=== PATIENT | male | born 1955 ===

== ENCOUNTER 2016-06-16 23:53 | Emergency (ER) | payer OTHER ==
[~2016-06-16] VITALS: Ht 180.3 cm; Wt 62.0 kg
[2016-06-16 23:59] VITALS: Ht 180.3 cm; Wt 62.0 kg
--- NOTE | 2016-06-17 00:50 | ERD ---
ER Documentation Chief Complaint Date/Time DATE: 06/17/16 TIME: 00:49 Chief Complaint bib [employer] from retirement for poss. broken injection needle that traveled up arm HPI This is a 60-year-old male brought in by [employer] for retirement for possible broken needle. Denies any other complaints. ROS All systems reviewed and are negative except as per history of present illness. Allergies Allergies: Coded Allergies: No Known Drug Allergies (Verified Allergy, Unknown, 06/17/16) Physical Exam Vitals Vital Signs Date Time Temp Pulse Resp B/P Pulse Ox O2 Delivery O2 Flow Rate FiO2 06/16/16 23:59 98.1 91 20 151/91 97 Physical Exam Const: [] Head: Atraumatic Eyes: Normal Conjunctiva ENT: Normal External Ears, Nose and Mouth. Neck: Full range of motion..~ No meningismus. Resp: Clear to auscultation bilaterally Cardio: Regular rate and rhythm, no murmurs Abd: Soft, non tender, non distended. Normal bowel sounds Skin: No petechiae or rashes Back: No midline or flank tenderness Ext: No cyanosis, or edema Neur: Awake and alert Psych: Normal Mood and Affect Procedures/MDM X-ray Shoulder 3V Interpreted by me: Bones: No fracture Joints: No dislocation Foreign body: None X-ray Forearm 2V Interpreted by me: Bones: [No fracture] Joints: [No dislocation] Foreign body: Metal foreign body in forearm Medical decision-making: This 52 [place] retained foreign body likely needle in his arm. It is a nondangerous place and has no ability to travel. It has been there for 2 weeks. Patient will be discharged in police custody. Departure Diagnosis: Primary Impression: Retained foreign body Condition: Stable Patient Instructions: Foreign Body, Soft Tissue [Not Removed], [facility] Clearance DHARA COOPER Jun 17, 2016 00:50
--- NOTE | 2016-06-17 01:10 | RADRPT ---
PROCEDURE: XR right shoulder. CLINICAL INDICATION: Concern for foreign body in the right shoulder TECHNIQUE: AP Internal and external rotation views of the right shoulder were performed. COMPARISON: None. FINDINGS: There is normal osseous mineralization and alignment. No acute fracture or osseous lesion is identified. There are normal joints without evidence of arthritis or dislocation. The soft tissues are unremarkable. No evident retained right shoulder foreign body. IMPRESSION: No evident retained radiopaque foreign body in the right shoulder. RPTAT: [facility] Phys[facility] [place] Date Time Electronically viewed and signed by Physician Siena on 06/17/2016 01:10 RS/
--- NOTE | 2016-06-17 01:12 | RADRPT ---
PROCEDURE: X-ray right humerus CLINICAL INDICATION: Foreign body in right humerus. TECHNIQUE: 2 views right humerus. COMPARISON: None FINDINGS: 20 mm linear radiopaque foreign body over the distal right humerus near the antecubital fossa. This is otherwise nonspecific. Otherwise, there is no other evident retained foreign body over the righ t upper extremity. No acute fracture. IMPRESSION: 1. 20 mm linear radiopaque foreign body over the distal right humerus near the antecubital fossa. 2. This otherwise nonspecific. 3. Otherwise, no other evident retained foreign body over the right upper extremity. RPTAT: [facility] [place] Date Time Electronically viewed and signed by Physician Siena on 06/17/2016 01:11 RS/
== END 2016-06-17 00:53 | disposition home or self-care (01) ==
LOC: E/R 23:53
DX: S50.851A Superficial foreign body of right forearm, initial encounter (principal); W45.8XXA Other foreign body or object entering through skin, initial encounter; Y92.9 Unspecified place or not applicable